=== PATIENT | female | born 1955 | race Two or more races ===

== ENCOUNTER 2021-10-10 13:27 | Inpatient (IN) | payer OTHER ==
[~2021-10-10] VITALS: Ht 172.7 cm; Wt 104.3 kg
[2021-10-23] MEDS ORDERED: TRAZODONE HCL150 MG PO (14:10)
[2021-10-23] MEDS ORDERED: NEXIUM40 M1 PO (14:11)
[2021-10-23] MEDS ORDERED: PEPCID AC10 MG PO (14:11)
[2021-10-23] MEDS ORDERED: MOBIC7.5 MG PO (14:11)
[2021-10-23] MEDS ORDERED: WELLBUTRIN XL300 MG PO (14:11)
[2021-10-25] MEDS ORDERED: MEDROLPACK PO (11:43)
[2021-10-25] MEDS ORDERED: AMOX-CLAV 875-1 EACH PO (11:43)
[2021-10-25] MEDS ORDERED: PERCOCET 5-3251 EACH PO (11:43)
[2021-10-25] MEDS ORDERED: COLACE100 MG PO (11:43)
== END 2021-10-26 12:24 | disposition home or self-care (01) | DRG 473 ==
LOC: O/R 10-25 05:30 → PED 10-25 05:30 → SURH 10-25 11:00 → PED 10-25 17:00
PROVIDERS: ADMIT Orthopaedic Surgery Orthopaedic Surgery of the Spine; ATTEND Orthopaedic Surgery Orthopaedic Surgery of the Spine
PROC: 0RT30ZZ Resection of Cervical Vertebral Disc, Open Approach (ICD-10-PCS; 2021-10-25)
PROC: 0PB30ZZ Excision of Cervical Vertebra, Open Approach (ICD-10-PCS; 2021-10-25)
PROC: 07DS0ZZ Extraction of Vertebral Bone Marrow, Open Approach (ICD-10-PCS; 2021-10-25)
PROC: 0RG20A0 Fusion of 2 or more Cervical Vertebral Joints with Interbody Fusion Device, Anterior Approach, Anterior Column, Open Approach (ICD-10-PCS; principal; 2021-10-25 11:00)
DX: M50.022 Cervical disc disorder at C5-C6 level with myelopathy (principal); M48.02 Spinal stenosis, cervical region; Z20.822 Contact with and (suspected) exposure to COVID-19; Z98.1 Arthrodesis status